=== PATIENT | male | born 1995 | race American Indian/Alaskan Native ===

== ENCOUNTER 2021-05-27 15:00 | Emergency (ER) | payer SELFPAY ==
[2021-05-27 15:03] VITALS: BP 146/88
== END 2021-05-29 02:25 ==
LOC: ED 15:00
DX: Z04.1 Encounter for examination and observation following transport accident (principal); Z53.21 Procedure and treatment not carried out due to patient leaving prior to being seen by health care provider; V87.7XXA Person injured in collision between other specified motor vehicles (traffic), initial encounter; Y93.89 Activity, other specified; Y92.488 Other paved roadways as the place of occurrence of the external cause; Y99.8 Other external cause status

== ENCOUNTER 2021-12-15 17:20 | Emergency (ER) | payer SELFPAY ==
[2021-12-15 17:48] VITALS: BP 141/80
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
== END 2021-12-15 18:30 | disposition home or self-care (01) ==
LOC: ED 17:20
DX: M25.512 Pain in left shoulder (principal)
CPT/HCPCS: 99282